=== PATIENT | male | born 2000 | race Two or more races ===

== ENCOUNTER 2021-12-13 21:44 | Inpatient (IN) | payer MEDICAID ==
[~2021-12-13] VITALS: Ht 167.6 cm; Wt 78.0 kg
[2021-12-13] MEDS ORDERED: SODIUM CHLORIDE 0.9% 1,000 ML IV ONE (22:15)
[2021-12-13 22:49] LABS: HEMATOCRIT. 51.3 % (42.0-52.0); HEMOGLOBIN. 17.5 g/dL (14.0-18.0); MEAN CORPUSCULAR HEMOGLOBIN 30.3 pg (28.0-32.0); MEAN CORPUSCULAR VOLUME 88.7 fL (80.0-94.0); MEAN PLATELET VOLUME 9.3 fl (7.4-10.4); PLATELET 222 x1000/uL (130-400); RED BLOOD CELL COUNT 5.78 mill/uL (4.7-6.1); RED CELL DISTRIBUTION WIDTH 13.3 % (11.6-14.6)
[2021-12-13 22:54] LABS: CHLORIDE 105 mEq/L (98-107)
[2021-12-13 23:03] LABS: ETHANOL BLOOD < 10 mg/dL
[2021-12-13 23:12] LABS: PLATELET ESTIMATE NORMAL
[2021-12-14 00:29] LABS: *AMPHETAMINES SCREEN URINE PRESUMTIVE POSITIVE (NEGATIVE); *BARBITURATES SCREEN URINE NEGATIVE (NEGATIVE); *BENZODIAZEPINES SCREEN URINE NEGATIVE (NEGATIVE); *COCAINE SCREEN URINE NEGATIVE (NEGATIVE); CANNABINOID URINE SCREEN PRESUMTIVE POSITIVE (NEGATIVE); METHADONE URINE SCREEN NEGATIVE (NEGATIVE); OPIATES URINE SCREEN NEGATIVE (NEGATIVE); PHENCYCLIDINE URINE SCREEN NEGATIVE (NEGATIVE)
[2021-12-14] MEDS ORDERED: ASPIRIN 325MG EC TABLET PO ONE (01:15)
[2021-12-14 04:30] VITALS: BP 140/69
[2021-12-14] MEDS ORDERED: LORAZEPAM 0.5MG TABLET PO PRN (06:15)
[2021-12-14] MEDS ORDERED: ONDANSETRON HCL 4MG/2ML INJ IV PRN (06:15)
[2021-12-14 08:00] VITALS: BP 125/71
[2021-12-14 12:00] VITALS: BP 130/76
[2021-12-14] MEDS ORDERED: MAGNESIUM/ALUMINUM HYDROXIDE/SIMETHICONE 30ML UDC PO PRN (12:30)
[2021-12-14] MEDS ORDERED: CLONIDINE 0.1MG TABLET PO PRN (12:30)
[2021-12-14] MEDS ORDERED: HYDROCODONE/ACETAMINOPHEN 5/325MG TABLET PO PRN (12:30)
[2021-12-14] MEDS ORDERED: ACETAMINOPHEN 325MG TABLET PO PRN (12:30)
[2021-12-14] MEDS ORDERED: DOCUSATE SODIUM 100MG CAPSULE PO PRN (12:30)
[2021-12-14] MEDS ORDERED: NALOXONE HCL 0.4MG/ML VIAL IV PRN (12:45)
[2021-12-14] MEDS ORDERED: ENOXAPARIN 40MG/0.4ML SYR SUBCUT SCH (13:00)
[2021-12-14 16:00] VITALS: BP 128/79
[2021-12-14 20:00] VITALS: BP 128/63
[2021-12-14] MEDS ORDERED: MELA5TAB2 SL (20:42)
[2021-12-14] MEDS ORDERED: BENZ0.5T43 MT (20:42)
[2021-12-14] MEDS ORDERED: HAL5 MT (20:42)
[2021-12-14] MEDS ORDERED: DIPH50CA38 MT (20:42)
[2021-12-14] MEDS ORDERED: DIPHENHYDRAMINE 50MG CAPSULE PO SCH (21:00)
[2021-12-14] MEDS ORDERED: MEDICATION NOT ON FORMULARY EA (Melatonin 1 TAB) SL SCH (21:00)
[2021-12-14] MEDS: BENZTROPINE MESYLATE 0.5MG TABLET PO SCH (21:50)
[2021-12-14] MEDS ORDERED: MELATONIN 3MG TABLET PO SCH (22:00)
[2021-12-14] MEDS: HALOPERIDOL 5MG TABLET PO SCH (22:42)
[2021-12-15] VITALS: BP 119/75
[2021-12-15 04:00] VITALS: BP 114/67
[2021-12-15 08:00] VITALS: BP 125/74
[2021-12-15 08:27] LABS: BASOPHILS % 0.4 % (0.0-2.0); EOSINOPHILS % 0.2 % (0.0-5.0); HEMATOCRIT. 47.7 % (42.0-52.0); HEMOGLOBIN. 16.8 g/dL (14.0-18.0); MEAN CORPUSCULAR HEMOGLOBIN 30.9 pg (28.0-32.0); MEAN CORPUSCULAR VOLUME 87.7 fL (80.0-94.0); MEAN PLATELET VOLUME 9.4 fl (7.4-10.4); MONOCYTES % 8.3 % (2.0-8.0); NEUTROPHILS % 71.1 % (40.0-76.0); PLATELET 204 x1000/uL (130-400); RED BLOOD CELL COUNT 5.44 mill/uL (4.7-6.1); RED CELL DISTRIBUTION WIDTH 13.4 % (11.6-14.6)
[2021-12-15 08:49] LABS: CHLORIDE 106 mEq/L (98-107)
[2021-12-15] MEDS: BENZTROPINE MESYLATE 0.5MG TABLET PO SCH (09:01)
[2021-12-15] MEDS: HALOPERIDOL 5MG TABLET PO SCH (09:01)
[2021-12-15 09:02] LABS: PHOSPHORUS 3.7 mg/dL (2.5-4.9)
[2021-12-15 09:52] LABS: CLARITY URINE CLEAR (CLEAR); COLOR URINE YELLOW (YELLOW); KETONES URINE TRACE (NEGATIVE); LEUKOCYTE ESTERASE URINE NEGATIVE (NEGATIVE); NITRITE URINE NEGATIVE (NEGATIVE); OCCULT BLOOD URINE NEGATIVE (NEGATIVE); PH URINE 7.5 (4.5-8.0); PROTEIN URINE NEGATIVE (NEGATIVE); SPECIFIC GRAVITY URINE 1.004 (1.005-1.030); UROBILINOGEN URINE 0.2 E.U./dL (0.2-1.0)
[2021-12-15 12:00] VITALS: BP 128/83
[2021-12-15 13:33] VITALS: BP 128/83
== END 2021-12-15 14:14 | disposition home or self-care (01) | DRG 52 ==
LOC: ER 21:44 → MICUSO 12-14 00:16 → EDBEDREQ 12-14 01:07 → 8WST 12-14 03:18
PROVIDERS: ADMIT Internal Medicine; ATTEND Internal Medicine
DX: G92.8 Other toxic encephalopathy (principal); D72.829 Elevated white blood cell count, unspecified; F20.9 Schizophrenia, unspecified; Z20.822 Contact with and (suspected) exposure to COVID-19; F15.90 Other stimulant use, unspecified, uncomplicated; F31.9 Bipolar disorder, unspecified; Z91.14 Patient's other noncompliance with medication regimen; Z71.51 Drug abuse counseling and surveillance of drug abuser; Z79.899 Other long term (current) drug therapy; R00.0 Tachycardia, unspecified
CPT/HCPCS: 36415; 80048; 80053; 80076; 80305; 80307; 80320; 80329; 81003; 83735; 84100; 84484; 85025; 87426; 93005; 93970; 99285; J1630; J1650; J7030; Q0163; G0480

== ENCOUNTER 2024-02-01 06:05 | Emergency (ER) | payer SELFPAY ==
[~2024-02-01] VITALS: Ht 154.9 cm; Wt 76.0 kg
[~2024-02-01 06:05] MED LIST: BENZ0.5T3 MT; DIPH50CA38 MT; HALO5TAB2 MT; MELA5TAB2 SL
[2024-02-01 06:08] VITALS: BP 177/68; PULSE 63; RESP 18; O2SAT 100
[2024-02-01 07:00] VITALS: TEMP 98.7
[2024-02-01] MEDS: ACETAMINOPHEN 325MG TABLET PO ONE (07:00)
[2024-02-01] MEDS: FAMOTIDINE 20MG TABLET PO ONE (07:00)
== END 2024-02-01 07:03 | disposition home or self-care (01) ==
LOC: ER 06:19
DX: R10.9 Unspecified abdominal pain (principal)
CPT/HCPCS: 99283